=== PATIENT | male | born 1950 | race Caucasian/White ===

== ENCOUNTER 2020-11-02 22:28 | Emergency (ER) | payer MEDICAID, OTHER ==
[~2020-11-02] VITALS: Ht 165.1 cm; Wt 92.5 kg
[2020-11-02 22:37] VITALS: BP 150/76
--- NOTE | 2020-11-02 22:43 | NUR ---
PATIENT AMBUALTED TO BED 11 WITH STEADY GAIT.
--- NOTE | 2020-11-02 22:58 | NUR ---
70 y/o male bib daugther for abdominal and back pain. A/ox4; gcs 15; able to ambulate; skin inact; Respirations are even and unlabored; clear breath sounds; Denies nausea vomiting; abdomen soft and round; Abd. sounds are normactive. Musculoskeltal- Ambulatory; stomach and back pain are 5/10 nonradiating. ERMD made aware. bed set at lowest setting. side rails x1. Pmh: high cholesterol allergies: none meds: miralax 17gm; atorvastatin 10mg
--- NOTE | 2020-11-02 23:48 | NUR ---
ERMD at bedside evaluating patient.
[2020-11-02] MEDS ORDERED: CLINDAMYCIN 600 MG/4 ML VIAL IM ONE (23:50)
[2020-11-02] MEDS ORDERED: VANCOMYCIN 1,000 MG in DEXTROSE 5% 250 ML IV ONE (23:50)
[2020-11-02] MEDS ORDERED: NACL 0.9% 1,000 ML IV ONE (23:50)
[2020-11-02] MEDS ORDERED: PANTOPRAZOLE 40 MG INJ VIAL IVP ONE (23:50)
[2020-11-02] MEDS ORDERED: MORPHINE SULFATE 4 MG/ML SYR IVP ONE (23:50)
[2020-11-02] MEDS ORDERED: ONDANSETRON 4 MG/2 ML VIAL IVP ONE (23:50)
[2020-11-03 00:08] LABS: BASOPHILS # (AUTO) 0.1 K/uL (0.00-0.22); BASOPHILS % (AUTO) 0.4 % (0.0-2.0); EOSINOPHILS # (AUTO) 0.2 K/uL (0-0.4); EOSINOPHILS % (AUTO) 1.1 % (0.0-4.0); HEMATOCRIT 48.8 % (36-52); HEMOGLOBIN 16.7 g/dL (12.0-18.0); LYMPHOCYTES # (AUTO) 3.1 K/uL (2.0-11.5); LYMPHOCYTES % (AUTO) 17.5 % (20.5-51.1); MEAN CORPUSCULAR HEMOGLOBIN 32 pg (27-31); MEAN CORPUSCULAR HGB CONC 34 g/dL (33-37); MEAN CORPUSCULAR VOLUME 93.6 fL (80-94); MONOCYTES # (AUTO) 1.5 K/uL (0.8-1.0); MONOCYTES % (AUTO) 8.4 % (1.7-9.3); NEUTROPHILS # (AUTO) 12.9 K/uL (1.8-7.7); NEUTROPHILS % (AUTO) 72.6 % (42.2-75.2); PLATELET COUNT (AUTO) 260 K/uL (140-450); RED BLOOD CELL COUNT(AUTO) 5.21 MIL/uL (4.20-6.10); RED CELL DISTRIBUTION WIDTH 13.8 % (11.6-13.7); WHITE BLOOD COUNT (AUTO) 17.8 K/uL (4.8-10.8)
[2020-11-03 00:13] LABS: APPEARANCE,URINE CLEAR (CLEAR); BILIRUBIN,URINE NEGATIVE (NEGATIVE); BLOOD, URINE TRACE-L (NEGATIVE); COLOR,URINE YELLOW (YELLOW); LEUKOCYTE ESTERASE ,URINE NEGATIVE (NEGATIVE); NITRITE, URINE NEGATIVE (NEGATIVE); UGLUCOSE NEGATIVE (NEGATIVE)
[2020-11-03 00:19] LABS: ANION GAP 14.8 (8-16); CARBON DIOXIDE 25.2 mmol/L (21-32); CHLORIDE 103 mmol/L (98-107); CREATININE 0.9 mg/dL (0.6-1.3); GLUCOSE 109 mg/dL (74-106); SODIUM SERUM 139 mmol/L (136-145); UREA NITROGEN, BLOOD 12 mg/dL (7-18)
--- NOTE | 2020-11-03 00:23 | NUR ---
CONSENT FOR CT SIGNED.
[2020-11-03 00:25] LABS: ALBUMIN 3.2 g/dL (3.4-5.0); ASPARTATE AMINOTRANSFERASE 56 U/L (15-37); LIPASE 149 U/L (73-393); TOTAL BILIRUBIN 0.6 mg/dL (0.0-1.0)
[2020-11-03 00:28] LABS: WBC,URINE 0-5 /HPF (0-5)
[2020-11-03] MEDS ORDERED: CLINDAMYCIN 600 MG/4 ML VIAL ONE ×2 (01:05→01:07)
[2020-11-03] MEDS ORDERED: VANCOMYCIN 1,000 MG VIAL ONE (01:06)
--- NOTE | 2020-11-03 02:11 | NUR ---
patient taken to ct
--- NOTE | 2020-11-03 02:24 | NUR ---
patient back from ct
--- NOTE | 2020-11-03 02:41 | NUR ---
patient ambulated to restroom with steady gait.
--- NOTE | 2020-11-03 02:42 | NUR ---
noted abscess on right inner buttock; no drainage noted
[2020-11-03] MEDS ORDERED: ACET-9525 PO (04:03)
[2020-11-03] MEDS ORDERED: CLIN-178 PO (04:03)
[2020-11-03] MEDS ORDERED: CEPH-588 PO (04:03)
--- NOTE | 2020-11-03 04:24 | NUR ---
IV removed, catheter intact and site benign. Applied folded 4x4 gauze and tape to stop bleeding.
[2020-11-03 04:25] VITALS: BP 148/68
--- NOTE | 2020-11-03 04:25 | NUR ---
Patient discharged with v/s stable. Written and verbal after care instructions given and explained. Patient alert, oriented and verbalized understanding of instructions. Ambulatory with steady gait. All questions addressed prior to discharge. ID band removed. Patient advised to follow up with PMD. Rx of HYDROCODONE/ACETAMINOPHEN,KEFLEX, CLINDAMYCIN given. Patient educated on indication of medication including possible reaction and side effects. Opportunity to ask questions provided and answered. Patient refused to sign d/c paperwork.
--- NOTE | 2020-11-08 19:54 | NUR ---
LATE ENTRY- VANOMYCIN IVPB DISCONTINED AT 2474
== END 2020-11-03 04:25 | disposition home or self-care (01) ==
LOC: MED 22:28
DX: L02.31 Cutaneous abscess of buttock (principal); E78.00 Pure hypercholesterolemia, unspecified; Z79.899 Other long term (current) drug therapy
CPT/HCPCS: 36415; 74176; 80053; 81001; 83605; 83690; 85025; 96361; 96365; 96366; 96372; 96375; 99285; C9113; J2270; J2405; J3370; J3490; J7030; J7060